=== PATIENT | female | born 1955 | race African-American/Black ===

== ENCOUNTER 2016-12-06 15:38 | Emergency (ER) | payer BC ==
[~2016-12-06] VITALS: Ht 162.6 cm; Wt 62.0 kg
[~2016-12-06 15:38] MED LIST: AMLODIPINE; CLIN-79 PO; DIPH50DI3 PO; FAMO20TA96 PO; HYDR-3927 PO; LEVETIRACETAM; P20 PO
[2016-12-06 18:00] VITALS: BP 146/90
== END 2016-12-06 19:02 | disposition home or self-care (01) ==
LOC: ER 16:05
DX: R58 Hemorrhage, not elsewhere classified (principal); Z99.2 Dependence on renal dialysis; I12.9 Hypertensive chronic kidney disease with stage 1 through stage 4 chronic kidney disease, or unspecified chronic kidney disease; N18.9 Chronic kidney disease, unspecified; F17.200 Nicotine dependence, unspecified, uncomplicated
CPT/HCPCS: 99283